=== PATIENT | male | born 1940 | race Caucasian/White ===

== ENCOUNTER → 2018-07-13 | Outpatient (CLI) | payer MEDICARE | END | disposition home or self-care (01) | LOC: RAH 13:10 | PROVIDERS: ATTEND Internal Medicine | DX: J44.9 Chronic obstructive pulmonary disease, unspecified (principal); R91.1 Solitary pulmonary nodule; I25.10 Atherosclerotic heart disease of native coronary artery without angina pectoris | CPT/HCPCS: 71250 ==

== ENCOUNTER → 2019-09-17 | Outpatient (CLI) | payer MEDICARE | END | disposition home or self-care (01) | LOC: RAH 12:57 | PROVIDERS: ATTEND Internal Medicine | DX: J44.9 Chronic obstructive pulmonary disease, unspecified (principal); J92.9 Pleural plaque without asbestos; R91.1 Solitary pulmonary nodule; R51 Headache | CPT/HCPCS: 70450; 71250 ==

== ENCOUNTER → 2021-03-29 | Outpatient (CLI) | payer MEDICARE | END | disposition home or self-care (01) | LOC: RAH 13:08 | PROVIDERS: ATTEND Urology | DX: N32.89 Other specified disorders of bladder (principal); R31.9 Hematuria, unspecified; C67.9 Malignant neoplasm of bladder, unspecified | CPT/HCPCS: 76770 ==